=== PATIENT | female | born 1995 | race Two or more races ===

== ENCOUNTER 2018-09-03 11:08 | Emergency (ER) | payer MEDICAID, OTHER ==
[~2018-09-03] VITALS: Ht 160 cm; Wt 99.8 kg
[2018-09-03 11:31] VITALS: BP 129/48
[2018-09-03] MEDS ORDERED: cefTRIAXone SOD 1,000 MG VL IM ONE (12:45)
== END 2018-09-03 13:11 | disposition home or self-care (01) ==
LOC: ER 11:19
DX: S60.861A Insect bite (nonvenomous) of right wrist, initial encounter (principal); S00.261A Insect bite (nonvenomous) of right eyelid and periocular area, initial encounter; W57.XXXA Bitten or stung by nonvenomous insect and other nonvenomous arthropods, initial encounter; Y93.89 Activity, other specified; Y99.8 Other external cause status; Y92.89 Other specified places as the place of occurrence of the external cause
CPT/HCPCS: 96372; 99283; J0696

== ENCOUNTER 2018-11-19 23:51 | Emergency (ER) | payer MEDICAID ==
[~2018-11-19] VITALS: Ht 160 cm; Wt 99.8 kg
[2018-11-20] MEDS ORDERED: methylPREDNISolone SOD SUCC 125 MG/2 ML VL IV ONE (00:15)
[2018-11-20] MEDS ORDERED: EPINEPHrine HCL 1 MG/1 ML AMP SC ONE (00:15)
[2018-11-20] MEDS ORDERED: diphenhdrAMINE HCL 50 MG/1 ML VL IV ONE (00:15)
[2018-11-20 02:10] VITALS: BP 111/58
== END 2018-11-20 03:09 | disposition home or self-care (01) ==
LOC: ER 23:55
DX: T78.3XXA Angioneurotic edema, initial encounter (principal); T78.40XA Allergy, unspecified, initial encounter; X58.XXXA Exposure to other specified factors, initial encounter
CPT/HCPCS: 96372; 96374; 96375; 99283; J0171; J1200; J2930